=== PATIENT | male | born 1995 | race Caucasian/White ===

== ENCOUNTER 2019-07-20 20:50 | Emergency (ER) | payer OTHER ==
--- NOTE | 2019-07-20 20:54 | UC ---
Throat Pain/Nasal Micheal HPI - HPI Summary HPI Summary: 24 yo male presents with sore throat. He tells me that he has had a sore throat since yesterday with tender glands and painful swallowing. Noticed enlarged tonsils and redness in his throat today. Noted fever today and took tylenol with good relief. He is eating, drinking, and tolerating po well. Denies sinus symptoms, cough, rash, abdominal pain, n/v. - History of Current Complaint Stated Complaint: SORE THROAT Time Seen by Provider: 07/20/19 20:51 Hx Obtained From: Patient Onset/Duration: Sudden Onset Severity: Moderate Pain Intensity: 5 Pain Scale Used: 0-10 Numeric - Allergies/Home Medications Allergies/Adverse Reactions: Allergies Allergy/AdvReac Type Severity Reaction Status Date / Time No Known Allergies Allergy Verified 07/20/19 20:57 Home Medications: Home Medications Amoxicillin PO (*) [Amoxicillin 500 MG CAP*] 500 mg PO Q12H 9 Days #18 cap 07/19 [Rx] Ascorbic Acid [Vitamin C] 1 tab PO Q1HR 07/20/19 [History Confirmed 07/20/19] Eucalyptus/Menthol [Cough Drops] 1 dose PO ONCE PRN 07/20/19 [History Confirmed 07/20/19] Phenol/Sodium Phenolate [Sore Throat [place]] 1 dose PO ONCE PRN 07/20/19 [ History Confirmed 07/20/19] PMH/Surg Hx/FS Hx/Imm Hx - Additional Past Medical History Additional PMH: None Other History Of: Negative For: Anticoagulant Therapy - Surgical History Surgical History: None - Family History Known Family History: Positive: None - Social History Lives: With Family Alcohol Use: Occasionally Substance Use Type: None Smoking Status (MU): Never Smoked Tobacco Review of Systems All Other Systems Reviewed And Are Negative: No Constitutional: Positive: Fever Skin: Positive: Negative Eyes: Positive: Negative ENT: Positive: Sore Throat Respiratory: Positive: Negative Cardiovascular: Positive: Negative Gastrointestinal: Positive: Negative Neurological/Mental Status: Positive: Negative Psychological: Positive: Negative Physical Exam - Summary Physical Exam Summary: GENERAL: NAD. WDWN. No pain distress. SKIN: No rashes, sores, lesions, or open wounds. HEENT: Head: AT/NC Eyes: EOM intact. Conjunctiva clear without inflammation or discharge. Ears: Hearing grossly normal. TMs intact, no bulging, erythema, or edema. Nose: Nasal mucosa pink and moist. NTTP maxillary and frontal sinus. Throat: Posterior oropharynx moderate erythema and 2+ tonsillar enlargement. No exudates. Uvula midline. No hoarse voice or muffled voice. NECK: Supple. Mildly ttp tonsillar LAD. CHEST: CTAB. No r/r/w. No accessory muscle use. Breathing comfortably and in no distress. CV: RRR. Pulses intact. Cap refill <2seconds NEURO: Alert. PSYCH: Age appropriate behavior. Triage Information Reviewed: Yes Vital Signs: Vital Signs: Temp Pulse Resp BP Pulse Ox 100.7 F 92 18 112/66 98 07/20/19 20:53 07/20/19 20:53 07/20/19 20:53 07/20/19 20:53 07/20/19 20:53 Laboratory Tests 07/20/19 21:04 Group A Strep Rapid Positive H Vital Signs Reviewed: Yes Throat Pain/Nasal Course/Dx - Course Course Of Treatment: POC strep positive - Differential Dx/Diagnosis Provider Diagnosis: Strep throat Discharge ED - Sign-Out/Discharge Documenting (check all that apply): Patient Departure All imaging exams completed and their final reports reviewed: No Studies - Discharge Plan Condition: Stable Disposition: HOME Prescriptions: Amoxicillin PO (*) [Amoxicillin 500 MG CAP*] 500 mg PO Q12H 9 Days #18 cap Patient Education Materials: Strep Throat (ED) Referrals: No Primary Care Phys,NOPCP [Primary Care Provider] - Additional Instructions: Continue tylenol/ibuprofen as directed for your fever and discomfort. Take the antibiotic twice a day for a total of 10 days - Billing Disposition and Condition Condition: STABLE Disposition: Home
[2019-07-20 20:56] VITALS: BP 112/66
[2019-07-20] MEDS ORDERED: Amoxicillin PO (*) 500 MG CAP PO ONE (21:08)
== END 2019-07-20 21:19 | disposition home or self-care (01) ==
LOC: UCEAST 20:50
DX: J02.9 Acute pharyngitis, unspecified (principal)
CPT/HCPCS: 87651; 99212; A9270-GY; G0463